=== PATIENT | female | born 1995 | race Caucasian/White ===

== ENCOUNTER 2021-02-27 23:30 | Emergency (ER) | payer OTHER, SELFPAY ==
[2021-02-27 23:52] VITALS: BP 126/72; BP 131/84; PULSE 77; PULSE 84; RESP 16; TEMP 36.3; O2SAT 100; BMI 21.9
--- NOTE | 2021-02-28 01:18 | ED_ITS ---
HPI - Anxiety General Chief Complaint: Anxiety Stated Complaint: ANXIETY Time Seen by Provider: 02/27/21 23:44 Source: patient Mode of arrival: EMS History of Present Illness HPI narrative: This is a 25-year-old female with longstanding history of anxiety for which she typically manages on her own through various breathing exercises. However, she does note that she has had increased stressors in her life recently and states that she was sitting down and then began feeling chest tightness and pressure without palpitations or shortness of breath. However, she did experience bilateral upper extremity trembling but denies any dizziness /diaphoresis. In addition, no recent history of long car rides or plane trips, hemoptysis, estrogen supplementation, personal history of cancer, recent surgery or bed bound state, calf pain or calf swelling. Currently, she states she is starting to feel little bit better. Related Data Previous Rx's Medication Instructions Recorded hydroxyzine HCl 10 mg PO TID PRN #10 tab 02/28/21 Allergies Allergy/AdvReac Type Severity Reaction Status Date / Time No Known Allergies Allergy Unverified 08/08/20 16:50 Review of Systems Review of Systems: Pertinent positives and negatives as stated in HPI 10 point review of systems is otherwise negative. PMFSH Past Medical History Source: nursing notes reviewed Medical History Anxiety Vertigo Social History Social History Advance Directives: No Physical Exam Vital Signs: Vital Signs: Last Vital Signs Temp 97.4 F 02/27/21 23:52 Pulse 77 02/27/21 23:52 Resp 16 02/27/21 23:52 BP 131/84 02/27/21 23:52 Pulse Ox 100 02/27/21 23:52 Body Mass Index 21.9 VITAL SIGNS: Reviewed. GENERAL: Well developed, well nourished, in no acute distress. HEAD: Normocephalic/atraumatic EYES: PERRLA, EOMI NOSE: Nares patent bilateral OROPHARYNX: no oral lesions noted, posterior pharynx clear NECK: Supple, no adenopathy LUNGS: Normal breath sounds.SpO2<100> CARDIOVASCULAR: Regular rate and rhythm without noted murmurs ABDOMEN: Soft, non-tender, non-distended with bowel sounds. NEUROLOGIC: Alert and oriented x 4. Course Course Course Narrative: This is a 25-year-old female with history and clinical presentation consistent with anxiety reaction that has gradually improved since arrival to the emergency department. There is low clinical suspicion for any infectious, metabolic etiologies as well as doubting PE. Patient has no history of asthma and clinical exam is otherwise benign. Patient was provided with hydroxyzine and discussed further management for her anxiety with an outpatient prescription to be used as needed and in discussion with her primary care provider. Discharge Plan Discharge Clinical Impression: Acute anxiety Patient Disposition: Home, Self-Care Instructions: Anxiety (ED) Additional Instructions: Please follow-up with your primary care provider in the next 2-3 days for further discussion regarding outpatient management of your anxiety. Do not hesitate to return to the emergency department should you experience any acute worsening of symptoms. Prescriptions: New hydroxyzine HCl 10 mg tablet 10 mg PO TID PRN (Reason: anxiety) Qty: 10 RF: 0 Referrals: Physician,None [Primary Care Provider] - 2 days
[2021-02-28] MEDS: hydrOXYzine HCL 10 MG TABLET PO (01:30)
[2021-02-28 01:31] VITALS: BP 116/69; PULSE 65; RESP 18; O2SAT 100
== END 2021-02-28 01:39 | disposition home or self-care (01) ==
PROVIDERS: Emergency Provider Student in an Organized Health Care Education/Training Program
DX: F41.1 Generalized anxiety disorder (principal); F43.0 Acute stress reaction; Z79.899 Other long term (current) drug therapy
CPT/HCPCS: 99283; 99284

== ENCOUNTER → 2023-05-04 08:18 | Outpatient (BNVA) | payer OTHER, SELFPAY | PROVIDERS: Visit Provider Internal Medicine | DX: S63.610A Unspecified sprain of right index finger, initial encounter (principal); S63.612A Unspecified sprain of right middle finger, initial encounter; X50.1XXA Overexertion from prolonged static or awkward postures, initial encounter | CPT/HCPCS: 99203 ==

== ENCOUNTER → 2023-05-06 11:00 | Outpatient (BNVA) | payer OTHER, SELFPAY | PROVIDERS: Visit Provider Physician Assistant | DX: M79.641 Pain in right hand (principal) | CPT/HCPCS: 99213 ==

== ENCOUNTER 2023-07-19 00:35 | Emergency (ER) | payer OTHER, SELFPAY ==
[2023-07-19 00:46] VITALS: BP 128/77; PULSE 104; RESP 16; TEMP 36.7; O2SAT 98; BMI 22.9
--- NOTE | 2023-07-19 00:54 | ED.LOWEXIN ---
HPI - Extremity Injury (Lower) General Chief Complaint: Extremity Injury, Lower Stated Complaint: work inj, pulled muscle Time Seen by Provider: 07/19/23 00:49 Source: patient Mode of arrival: ambulatory Limitations: no limitations History of Present Illness HPI Narrative: 28 yo female previiously healthy here with complaints of right thigh pain. 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 She tells me that she bent at the trunk leaning forward to grab the patient and then fell to the ground hitting her right knee on the ground. She denies hitting her head or loss of consciousness. When she hit the ground with her right knee she felt a pulling sensation in her right thigh. She reports pain now in her right thigh. No pain in her knee or in her hip. No associated weakness, numbness, tingling of the extremity. Related Data Previous Rx's Medication Instructions Recorded hydroxyzine HCl 10 mg tablet 10 mg PO TID PRN anxiety #10 tabs 02/28/21 Allergies Allergy/AdvReac Type Severity Reaction Status Date / Time No Known Allergies Allergy Unverified 08/08/20 16:50 Review of Systems Review of Systems: Yes all other systems are reviewed and are negative Constitutional: Constitutional: Reports no additional constitutional complaints, Denies body ache(s), Denies chills, Denies fever(s), Denies headache(s) and Denies weakness Eyes: Eyes: Reports no additional eye complaints and Denies change in vision ENT: Reports system reviewed and no additional complaints, except as documented, Denies dizziness, Denies headache(s), Denies nasal congestion, Denies nasal discharge and Denies neck pain Cardiovascular: Cardiovascular: Reports no additional cardiovascular complaints, Denies chest pain, Denies leg edema and Denies dyspnea Respiratory: Respiratory: Reports no additional respiratory complaints, Denies cough and Denies dyspnea Gastrointestinal: Gastrointestinal: Reports no additional gastrointestinal complaints, Denies abdominal pain, Denies diarrhea, Denies nausea and Denies vomiting Genitourinary: Genitourinary: Reports no additional female genitourinary complaints and Denies urinary incontinence Musculoskeletal: Musculoskeletal: Reports no additional musculoskeletal complaints, Denies back pain, Denies arthralgias, Denies joint swelling, Denies neck pain, Denies numbness and Denies tingling Comments: +muscle pain Integumentary/Breasts: Skin/Breast: Reports system reviewed and no additional complaints, except as docu and Denies rash Neurologic: Reports system reviewed and no additional complaints, except as documented, Denies Abnormal speech present, Denies dizziness, Denies headache(s), Denies numbness, Denies tingling and Denies weakness PMFSH Past Medical History Attestation statement: The following information was validated with the patient. Source: old records reviewed and nursing notes reviewed Medical History Anxiety Vertigo Social History Social History Advance Directives: No Advance Directives Information Provided: Yes Physical Exam Vital Signs: Vital Signs: Last Vital Signs Temp 98.0 F 07/19/23 00:46 Pulse 104 H 07/19/23 00:46 Resp 16 07/19/23 00:46 BP 128/77 07/19/23 00:46 Pulse Ox 98 07/19/23 00:46 O2 Del Method Room Air 07/19/23 00:46 BMI result Body Mass Index 22.9 Const: General: cooperative, healthy appearing, comfortable and no acute distress Orientation/consciousness: patient oriented x3 Limitations: no limitations HEENT: Head: Yes normal to inspection Ears: hearing grossly normal bilaterally General nose exam: Normal external nose present Face and sinus: Yes normal facial exam Mouth: Normal oral and palatal mucosa present Throat: Yes posterior oropharynx normal Eyes: General: appearance normal, both eyes and all related structures Pupils: Equal, round and reactive pupils present Neck: Neck: Yes normal visual inspection Chest: Chest palpation & inspection: normal inspection of the chest Resp: Effort & Inspection: normal respiratory effort Auscultation: clear to auscultation bilaterally Cardio: Rate: regular rate Rhythm: regular rhythm Peripheral pulses: Peripheral pulses 2+ throughout GI: Inspection: Yes normal to inspection Palpation (GI): Soft to palpation and nontender Auscultation: normal bowel sounds Back/Spine/Pelvis: Thoracic/Lumbar Spine: thoracic and lumbar spine normal to inspection Skin: General skin exam: no rashes or lesions noted Neuro: General: patient oriented x3, no focal motor deficits and normal sensation to monofilament Cranial nerves: Yes Equal, round and reactive pupils present Cognition (Neuro): normal cognition Speech: No Abnormal speech present Gait exam (Neuro): Normal gait present Motor exam (neuro): 5/5 motor strength present throughout Extrem: Other: TTP to right anterior mid thigh with palpable muscle spasm. No bony tenderness over right hip/knee with FROM of both extremities. Patient able to raise the right leg with no difficulty, extend and flex RLE with no difficulty. No palpable deformity. Normal 2+ DP/PT pulses right side. Normal distal sensation General: Yes normal to inspection Medical Decision Making Medical Decision Making MDM Narrative: 28 yo female here with complaints of right anterior thigh pain after work related injury. On exam patient has no bony tenderness. She has full range of motion of both proximal and distal joints. Intact CMS distally. Patient has palpable tenderness over the right mid anterior thigh with a palpable muscle spasm. Likely quad strain. Will recommend NSAIDs, ice, rest and follow-up with work connection as this is work related. Differential Diagnosis Differential Diagnoses: The differential diagnosis associated with the presentation includes Low concern for fracture, vascular injury, quad tendon rupture Tests considered The following testing was considered but not selected: No need for x-rays as patient has no bony tenderness and full range of motion. Prescription Management I considered prescription management with: Pain Medication Patient does NSAIDs be sufficient and pain control, she has these at home Discharge Plan Discharge Clinical Impression: Quadriceps muscle strain Patient Disposition: Home, Self-Care Instructions: Muscle Strain (ED), R.I.C.E. Treatment (ED) Additional Instructions: Rest, ice 20 minutes on 20 minutes off, gentle stretching Take ibuprofen for pain as needed Follow-up with work connection at [phone] Prescriptions: No Action hydroxyzine HCl 10 mg tablet 10 mg PO TID PRN (Reason: anxiety) Qty: 10 0RF Stand Alone Forms: Work/School Release
[2023-07-19 01:23] VITALS: BP 123/68; PULSE 97; RESP 18; TEMP 36.9; O2SAT 98
--- NOTE | 2023-07-19 01:29 | MHC.EDTECH ---
SLING APPLIED ON PATIENT LEFT SHOULDER ,VITALS SIGN TAKEN .
--- NOTE | 2023-07-19 01:32 | PC.NURSE ---
Pt a&o, no sob or chest pain, reviewed discharge instruction with pt. pt verbalized understanding.
== END 2023-07-19 01:34 | disposition home or self-care (01) ==
PROVIDERS: Emergency Provider Emergency Medicine; PCP Internal Medicine
DX: S76.111A Strain of right quadriceps muscle, fascia and tendon, initial encounter (principal); X50.3XXA Overexertion from repetitive movements, initial encounter; X50.9XXA Other and unspecified overexertion or strenuous movements or postures, initial encounter; Y93.9 Activity, unspecified; Y92.9 Unspecified place or not applicable; Y99.0 Civilian activity done for income or pay
CPT/HCPCS: 99282; 99284

== ENCOUNTER → 2023-07-20 09:58 | Outpatient (BNVA) | payer OTHER, SELFPAY | PROVIDERS: PCP Internal Medicine; Visit Provider Physician Assistant Medical | DX: S76.111A Strain of right quadriceps muscle, fascia and tendon, initial encounter (principal); W03.XXXA Other fall on same level due to collision with another person, initial encounter | CPT/HCPCS: 99202 ==

== ENCOUNTER → 2023-07-27 08:08 | Outpatient (BNVA) | payer OTHER, SELFPAY | PROVIDERS: PCP Internal Medicine; Visit Provider Internal Medicine | DX: S76.111A Strain of right quadriceps muscle, fascia and tendon, initial encounter (principal); W03.XXXA Other fall on same level due to collision with another person, initial encounter | CPT/HCPCS: 99213 ==